=== PATIENT | male | born 2005 | race African-American/Black ===

== ENCOUNTER 2025-02-05 21:19 | Emergency (ER) | payer MEDICAID ==
[~2025-02-05] VITALS: Ht 170.2 cm; Wt 53.0 kg
[2025-02-05 21:35] VITALS: O2SAT 99
[2025-02-05] MEDS ORDERED: METH4TAB95 MT (23:13)
[2025-02-05] MEDS ORDERED: ALBU18HF2 IH (23:13)
[2025-02-05 23:51] VITALS: BP 117/85; PULSE 74; RESP 17; TEMP 36.9; O2SAT 100
== END 2025-02-05 23:48 | disposition home or self-care (01) ==
LOC: ER 21:19
DX: J45.901 Unspecified asthma with (acute) exacerbation (principal); K21.9 Gastro-esophageal reflux disease without esophagitis; Z88.8 Allergy status to other drugs, medicaments and biological substances
CPT/HCPCS: 71045; 99283